=== PATIENT | female | born 1980 | race Two or more races ===

== ENCOUNTER 2016-11-16 18:12 | Inpatient (IN) | payer SELFPAY ==
[~2016-11-16 18:12] MED LIST: DIPRIVAN VIAL ONE; PITOCIN ONE; QUELICIN (OR ANECTINE) ONE; ULTANE GAS IN ONE; VERSED ONE; XYLOCAINE 2 % (PLAIN) ONE; ZOFRAN INJ 4 MG VIAL ONE
[2016-11-16 18:28] VITALS: BMI 35.1
[2016-11-16] MEDS ORDERED: PITOCIN ONE (18:44)
[2016-11-16] MEDS ORDERED: D5 1/2 NS 1000 ML 1,000 ML IV ONE (18:44)
[2016-11-16] MEDS ORDERED: NS 50 ML IV + SPIKE MINIBAG* 50 ML IV ONE (18:44)
[2016-11-16] MEDS ORDERED: D5 1/2 NS 1L W PITOCIN 20 UNITS/L 0 UNITS/0 ML BAG IV ONE (18:44)
[2016-11-16] MEDS ORDERED: AMPICILLIN VIAL 2 GM ONE (18:44)
[2016-11-16] MEDS: D5 1/2 NS 1000 ML 1,000 ML IV SCH (18:45)
[2016-11-16 18:46] LABS: BASOPHILS % (AUTO) 0.4 % (0.2-1.0); EOSINOPHILS # (AUTO) 0.1 x10^3/uL (0.0-0.2); EOSINOPHILS % (AUTO) 0.5 % (0.9-2.9); HEMATOCRIT 26.7 % (36.0-47.0); HEMOGLOBIN 8.6 g/dL (12.0-16.0); LYMPHOCYTES # (AUTO) 1.7 X10^3/uL (1.3-2.9); LYMPHOCYTES % (AUTO) 14.4 % (21.0-51.0); MEAN CORPUSCULAR HEMOGLOBIN 24.6 pg (27.0-34.0); MEAN CORPUSCULAR HGB CONC 32.2 g/dL (33.0-35.0); MEAN CORPUSCULAR VOLUME 76.5 fL (80.0-100.0); MEAN PLATELET VOLUME 8.8 fL (7.4-11.0); MONOCYTES # (AUTO) 0.5 x10^3/uL (0.3-0.8); MONOCYTES % (AUTO) 4.2 % (0.0-13.0); NEUTROPHILS # (AUTO) 9.7 x10^3/uL (2.2-4.8); NEUTROPHILS % (AUTO) 80.5 % (42.0-75.0); PLATELET COUNT 269 X10^3/uL (150.0-450.0); RED CELL DISTRIBUTION WIDTH 15.8 % (11.6-16.5)
[2016-11-16 18:49] LABS: AMNISURE ROM TEST THERE IS A RUPTURE (NO RUPTURE)
[2016-11-16 18:55] LABS: BLOOD UREA NITROGEN 12 mg/dL (7-18); CALCIUM 8.3 mg/dL (8.5-10.1); CARBON DIOXIDE 22.5 mmol/L (21-32); CHLORIDE 103 mmol/L (98-107); CREATININE 0.54 mg/dL (0.55-1.02); SODIUM 137 mmol/L (136-145); eGFR BLACK RACES > 60 (>60); eGFR NON BLACK RACES > 60 (>60)
[2016-11-16 19:01] LABS: HYPOCHROMASIA SLIGHT; MICROCYTOSIS SLIGHT; PLATELET MORPHOLOGY COMMENT NORMAL (NORMAL); POIKILOCYTOSIS SLIGHT; STOMATOCYTES PRESENT
[2016-11-16] MEDS ORDERED: LR 1000 ML IV 1,000 ML IV ONE ×2 (19:24→20:27)
[2016-11-16] MEDS ORDERED: FLUVIRIN IM ONE (19:36)
[2016-11-16] MEDS: D5LR 1L W PITOCIN 10 UNITS/L 10 UNITS/1,000 ML BAG IV ONE ×2 (19:43→21:15)
[2016-11-16] MEDS ORDERED: PITOCIN IVP ONE (19:44)
[2016-11-16] MEDS ORDERED: D5LR 1L W PITOCIN 10 UNITS/L 10 UNITS/1,000 ML BAG IV PRN (19:44)
[2016-11-16] MEDS ORDERED: NUBAIN INJ 200 MG VIAL MULTIDOSE IVP PRN (19:44)
[2016-11-16] MEDS ORDERED: AMPICILLIN VIAL 2 GM 2 GM in NS 100 ML IV + SPIKE MINIBAG* 100 ML IV SCH (20:00)
[2016-11-16] MEDS ORDERED: FENTANYL INJ 250 mcg ONE (20:27)
[2016-11-16] MEDS ORDERED: D5 1/2 NS 1L W PITOCIN 20 UNITS/L 20 UNITS/1,000 ML BAG IV ONE (20:28)
[2016-11-16] MEDS: DILAUDID INJ ONE ×2 (21:34→21:42)
[2016-11-16] MEDS ORDERED: BENADRYL INJ 50 MG VIAL IVP PRN (21:39)
[2016-11-16] MEDS ORDERED: REGLAN INJ 10 MG VIAL IVP PRN (21:39)
[2016-11-16] MEDS ORDERED: PHENERGAN INJ 25 MG IVP PRN (21:39)
[2016-11-16] MEDS ORDERED: ZOFRAN INJ 4 MG VIAL IVP PRN (21:39)
[2016-11-16] MEDS: DILAUDID INJ IVP PRN ×2 (21:48→21:53)
[2016-11-16 22:14] LABS: BILIRUBIN,URINE NEGATIVE (NEGATIVE); BLOOD/HEMOGLOBIN,URINE 2+ (NEGATIVE); GLUCOSE, URINE NEGATIVE (NEGATIVE); KETONES,URINE NEGATIVE (NEGATIVE); LEUKOCYTE ESTERASE ,URINE NEGATIVE (NEGATIVE); NITRITES,URINE NEGATIVE (NEGATIVE); PROTEIN,URINE NEGATIVE (NEGATIVE); UROBILINOGEN,URINE NORMAL (NORMAL)
[2016-11-16] MEDS ORDERED: MOTRIN TAB 800 MG PO PRN (22:14)
[2016-11-16] MEDS ORDERED: AMBIEN PO PRN (22:14)
[2016-11-16] MEDS ORDERED: MILK OF MAGNESIA PO PRN (22:14)
[2016-11-16] MEDS ORDERED: MORPHINE SULFATE INJ 4 MG IVP PRN (22:20)
[2016-11-16 22:21] LABS: APPEARANCE,URINE CLEAR (CLEAR); BACTERIA,URINE TRACE /HPF (NEGATIVE); COLOR,URINE YELLOW (YELLOW); SQUAMOUS EPITHELIAL CELL,UR NEGATIVE /HPF (NEGATIVE)
[2016-11-16 22:22] LABS: AMORPHOUS SEDIMENT,UR TRACE /HPF (NEGATIVE)
[2016-11-16] MEDS ORDERED: TORADOL 30 MG VIAL IVP PRN (22:22)
[2016-11-17] MEDS ORDERED: AMPICILLIN VIAL 1 GM 1 GM in NS 50 ML IV + SPIKE MINIBAG* 50 ML IV SCH ×2
[2016-11-17] MEDS: PERCOCET TAB 5/325 MG PO PRN ×4 (00:03→21:18)
[2016-11-17] MEDS ORDERED: FLUVIRIN IM ONE (05:25)
[2016-11-17] MEDS: D5 1/2 NS 1000 ML 1,000 ML IV SCH (05:44)
[2016-11-17] MEDS: PRENATAL PLUS PO SCH (08:05)
[2016-11-17] MEDS: ZANTAC PO SCH ×2 (08:05→21:18)
[2016-11-17] MEDS ORDERED: PHARMACY CONSULT - DOSE _____ XX SCH (10:00)
[2016-11-17] MEDS ORDERED: NS IV ONE (10:00)
[2016-11-17] MEDS ORDERED: DEXFERRUM or INFED 25 MG in NS 100 ML IV 100 ML IV ONE (10:00)
[2016-11-17] MEDS ORDERED: [UNRECOGNIZED DRUG - OTHER] IV ONE (10:00)
[2016-11-18] MEDS: PERCOCET TAB 5/325 MG PO PRN (01:55)
[2016-11-18 03:39] LABS: HEMATOCRIT 19.9 % (36.0-47.0); HEMOGLOBIN 6.5 g/dL (12.0-16.0)
[2016-11-18] MEDS: ZANTAC PO SCH ×2 (10:25→21:25)
[2016-11-18] MEDS: PRENATAL PLUS PO SCH (10:26)
[2016-11-19] MEDS: PRENATAL PLUS PO SCH (09:36)
[2016-11-19] MEDS: ZANTAC PO SCH (09:36)
[2016-11-19] MEDS: PERCOCET TAB 5/325 MG PO PRN (09:37)
[2016-11-19 09:42] VITALS: BP 94/53
== END 2016-11-19 13:40 | disposition home or self-care (01) | DRG 766 ==
LOC: ER 18:12 → LD 18:40 → MED/SURG 22:30
PROVIDERS: ADMIT Obstetrics & Gynecology Obstetrics; ATTEND Obstetrics & Gynecology Obstetrics
PROC: 0UB70ZZ Excision of Bilateral Fallopian Tubes, Open Approach (ICD-10-PCS; 2016-11-16)
PROC: 10D00Z1 Extraction of Products of Conception, Low, Open Approach (ICD-10-PCS; principal; 2016-11-16 20:30)
PROC: 3E0234Z Introduction of Serum, Toxoid and Vaccine into Muscle, Percutaneous Approach (ICD-10-PCS; 2016-11-17)
DX: O77.8 Labor and delivery complicated by other evidence of fetal stress (principal); Z37.0 Single live birth; O09.33 Supervision of pregnancy with insufficient antenatal care, third trimester; O26.893 Other specified pregnancy related conditions, third trimester; Z23 Encounter for immunization; Z3A.38 38 weeks gestation of pregnancy
CPT/HCPCS: 36415; 80048; 81001; 83020; 84112; 85014; 85018; 85025; 86592; 86701; 86850; 86900; 86901; 90686; 94640; 96365; 99284; A4216; A4222; S0197; J0290; J0330; J1170; J1885; J2001; J2250; J2270; J2405; J2590; J3010; J3490; J7042; J7120